=== PATIENT | female | born 1945 | race Caucasian/White ===

== ENCOUNTER → 2020-07-24 | Outpatient (CLI) | payer MEDICARE, OTHER ==
[2020-07-24 20:36] LABS: U Amphetamine Screen Not Detected; U Barbituate Screen Not Detected; U Benzodiazapine Screen Not Detected; U Buprenorphine Screen Not Detected; U Cannabinoids Screen Not Detected; U Cocaine Screen Not Detected; U Methadone Screen Not Detected; U Methamphetamine Screen Not Detected; U Opiates Screen Not Detected; U Oxycodone Screen Not Detected; U Phencyclidine Screen Not Detected; U Propoxyphene Screen Not Detected
== END ==
LOC: LAB SHORT 17:21 → LAB 17:21
PROVIDERS: Internal Medicine Critical Care Medicine
DX: R40.0 Somnolence (principal)

== ENCOUNTER 2025-07-26 08:46 | Day surgery (SDC) | payer MEDICARE, BC ==
[2025-07-26] VITALS (15 sets, daily range): BP systolic 115–165; BP diastolic 67–87
[~2025-07-26] VITALS: Ht 154.9 cm; Wt 38.6 kg
[~2025-07-26 08:46] MED LIST: ALBU90OI INH; ALEN70 PO; Bupropion HCl75 MG PO; CALCIUM 600 +1 EA11 PO; CeFAZolin Sodium 2,000 MG in NS 100 ML IV SCH; FAMO40 PO; FLAXSEED OIL1000 M1 PO; HYDR1TAB94 PO; MODAFINIL100 M1 PO; MULVITA PO; OMEGA 3 FISH OIL PO; POTASSIUM PO; PRAV20 PO; STIOLTO RESPIMAT4 G2 INH; TRELEGY ELLIPT1 EACH INH
[2025-07-26] MEDS ORDERED: CeFAZolin Sodium 2,000 MG VIAL ONE (09:11)
[2025-07-26] MEDS ORDERED: FentaNYL Citrate 50 MCG/ML 2 ML Injection ONE (09:18)
[2025-07-26] MEDS ORDERED: Bupivacaine 0.5% HCl 5 MG/ML 30MLVIAL ONE (09:41)
[2025-07-26] MEDS ORDERED: Dexamethasone Sod Phos 10 MG/ML 1ML VIAL ONE (10:22)
[2025-07-26] MEDS ORDERED: Ondansetron HCl 2 MG / ML 2ML Vial ONE (10:22)
[2025-07-26] MEDS ORDERED: Phenylephrine HCl 100 MCG/ML-NS 10MLSYR (1MG/10ML) ONE (10:23)
[2025-07-26] MEDS ORDERED: ePHEDrine Sulfate 50 MG/ML 1ML Injection ONE (10:32)
[2025-07-26] MEDS ORDERED: FentaNYL Citrate 50 MCG/ML 2 ML Injection IV PRN ×2 (11:25→11:30)
[2025-07-26] MEDS ORDERED: Ondansetron HCl 2 MG / ML 2ML Vial IV PRN (11:30)
[2025-07-26] MEDS ORDERED: HYDROmorphone HCl/Pf 1MG SYR IV PRN ×2 (11:30)
[2025-07-26] MEDS ORDERED: HYDROmorphone HCl/Pf 1MG SYR ONE (12:08)
[2025-07-26] MEDS ORDERED: HYDROcodone 5-APAP 325 TAB PO PRN (12:15)
--- NOTE | 2025-07-26 13:17 | NUR ---
PT DOING WELL PT DENIES PAIN PT DENIES NAUSEA Discharged via wheelchair to private car for ride home. Discharge instructions reviewed with patient. Patient verbalizes understanding. Copy given to patient to take home. EDUCATION FOR BENJIE FARLEY PROVIDED
== END 2025-07-26 23:00 | disposition home or self-care (01) ==
LOC: ORSCMMR 08:46 → ORD 10:00 → ORSCMMR 23:00
PROVIDERS: Surgery
PROC: 0HBU0ZZ Excision of Left Breast, Open Approach (ICD-10-PCS; principal; 2025-07-26 10:00)
DX: Z40.01 Encounter for prophylactic removal of breast (principal); Z85.3 Personal history of malignant neoplasm of breast; I12.9 Hypertensive chronic kidney disease with stage 1 through stage 4 chronic kidney disease, or unspecified chronic kidney disease; N18.9 Chronic kidney disease, unspecified; J44.9 Chronic obstructive pulmonary disease, unspecified; F32.A Depression, unspecified; E78.5 Hyperlipidemia, unspecified; K21.9 Gastro-esophageal reflux disease without esophagitis; Z79.899 Other long term (current) drug therapy; Z87.891 Personal history of nicotine dependence
CPT/HCPCS: 88307; A9270; J0690; J1100; J1171; J2371; J2405; J2704; J3010; J7120